=== PATIENT | male | born 1970 | race Caucasian/White ===

== ENCOUNTER 2018-01-27 08:46 | Day surgery (SDC) | payer OTHER ==
[2018-01-26 15:21] LABS: Absolute Lymphocytes (CBC) 1.8 K/uL (0.7-4.9); Absolute Monocytes 0.5 K/uL (0.1-1.3); Absolute Neutrophil 3.2 K/uL (1.8-8.0); Eosinophils % 2.7 % (0-4.4); Hematocrit 41.8 % (39.6-49.0); MCH 32.9 pg (27.0-35.0); MCV 95.7 fL (80-100); MPV 8.4 fL (7.6-11.3); Monocytes % 8.1 % (3.3-12.3); RBC Red Blood Cell Count 4.37 M/uL (4.33-5.43)
[2018-01-26 15:25] LABS: Protime INR 0.93
[2018-01-26 15:39] LABS: BUN Blood Urea Nitrogen 13 mg/dL (6-20); Bicarbonate 27 mEq/L (21-31); Glucose Level 84 mg/dL (65-120); Potassium 3.9 mEq/L (3.6-5.0); Sodium Level 137 mEq/L (135-145)
--- NOTE | 2018-01-26 16:40 | EKG ---
Test Date: 2018-01-26 Test Time: 14:07:46 Church Official: EVELYN MEASUREMENT RESULTS: Intervals: Rate: 67 UT: 120 QRSD: 102 QT: 398 QTc: 420 [place]: P: -12 UT: 120 QRS: -1 T: 18 INTERPRETIVE STATEMENTS: Normal sinus rhythm Normal ECG No previous ECG available for comparison Electronically Signed On 01-26-18 16:39:37 CDT by Zen Baron
--- OUTSIDE RECORDS SUMMARY | 2018-01-27 08:52 | XMS REPORT ---
:1970 Author Organization [employer] Care Team Providers Name Role Phone Jannet Holland Provider Role Unavailable Allergies, Adverse Reactions, Alerts Substance Reaction Event Type N.K.D.A. Info Not Available Non Drug Allergy Problems Problem Type Condition Code Onset Dates Condition Status Problem Hyperglycemia R73.9 Active Problem Hypertension, unspecified type I10 Active Problem Anxiety F41.9 Active Assessment Left arm pain M79.602 Active Assessment Hyperglycemia R73.9 Active Assessment Hypertension, unspecified type I10 Active Medications Medication Code System Code Instructions Start End Date Status Dosage Date Lisinopril ND 95247861764 20 mg Orally Active 1 tablet Once a day Ibuprofen NDC 76139521405 800 MG Orally Active 1 tablet Three times a with food week or milk as needed Ibuprofen NDC 42403956163 800 mg Orally January 11, February 10, Active 1 tablet Three times a 2017 2017 as needed day for pain; take with food or milk Results No Known Results Summary Purpose [employer] Submission
--- OUTSIDE RECORDS SUMMARY | 2018-01-27 08:52 | XMS REPORT ---
:1970 Author Organization [employer] Care Team Providers Name Role Phone Jannet Holland Provider Role Unavailable Allergies No Known Allergies Problems Problem Type Condition Code Onset Dates Condition Status Problem Anxiety F41.9 Active Problem Hyperglycemia R73.9 Active Problem Hypertension I10 Active Problem Hypertension, unspecified type I10 Active Medications No Known Medications Results No Known Results Summary Purpose [employer] Submission
--- OUTSIDE RECORDS SUMMARY | 2018-01-27 08:52 | XMS REPORT ---
:1970 Author Organization [employer] Care Team Providers Name Role Phone Jannet Holland Provider Role Unavailable Allergies No Known Allergies Problems Problem Type Condition Code Onset Dates Condition Status Problem Anxiety F41.9 Active Problem Hyperglycemia R73.9 Active Problem Hypertension I10 Active Problem Hypertension, unspecified type I10 Active Medications Medication Code System Code Instructions Start Date End Date Status Dosage Lisinopril [facility] [id number] 20 MG Orally January 11, Active 1 tablet twice a day 2017 Results No Known Results Summary Purpose [employer]ClinicalWorks Submission
[2018-01-27] MEDS ORDERED: CEFAZOLIN/SWI 1gm 1 GM/10 ML SYR ONE (09:28)
[2018-01-27] MEDS ORDERED: Ringers Lactate 1,000 ML IV ONE ×2 (09:28→11:55)
[2018-01-27] MEDS ORDERED: PROPOFOL 200 MG/20 ML VIAL IV ONE (09:50)
[2018-01-27] MEDS ORDERED: ONDANSETRON 4 MG/2 ML VIAL ONE (09:51)
[2018-01-27] MEDS ORDERED: LIDOCAINE 2% MPF 5 ML VIAL ONE (09:51)
[2018-01-27] MEDS ORDERED: MIDAZOLAM HCL 2 MG/2 ML INJ ONE (09:51)
[2018-01-27] MEDS ORDERED: FENTANYL CITR 100 MCG/2 ML ONE ×2 (09:51→11:02)
[2018-01-27] MEDS ORDERED: MORPHINE 10 MG/ML VIAL ONE (10:31)
[2018-01-27] MEDS ORDERED: BUPIVACA 0.5%/EPI 0.0005%/PF 30 ML VIAL ONE (11:02)
--- NOTE | 2018-01-27 11:50 | RAD REPORT ---
EXAM DESCRIPTION: RAD - Elbow Left 2 View - 01/27/2018 11:32 am CLINICAL HISTORY: Biceps tendon rupture. COMPARISON: None. FINDINGS: Fluoroscopic imaging is submitted of the left elbow related to biceps tendon repair. Detai ls of the procedure not available.
--- NOTE | 2018-01-27 12:03 | P.BOP ---
Preoperative diagnosis: left distal biceps tendon rupture Postoperative diagnosis: same Primary procedure: left distal biceps tendon repair Secondary procedure: none Drain Layer: NONE,NONE Estimated blood loss: <10 cc Specimen: none Findings: see dictation Anesthesia: General Complications: None Complications: see dictation Implants: Arthrex distal biceps button, 7x10 mm tenodesis screw Fluids & blood products: per anesthesia Transferred to: Recovery Room Condition: Good
[2018-01-27] MEDS ORDERED: KETOROLAC 30 MG/ML INJ ONE (12:24)
[2018-01-27] MEDS ORDERED: PROMETHAZINE 25 MG/ML VIAL ONE (12:24)
[2018-01-27] MEDS ORDERED: MEPERIDINE HCL 25 MG/0.5 ML ONE ×3 (12:24→13:01)
[2018-01-27] MEDS ORDERED: HYDROCODONE/APAP 7.5/325 MG TAB ONE (14:16)
--- NOTE | 2018-01-28 03:21 | OP ---
Date of Procedure: 01/27/2018 Surgeon: Richard Araujo MD Preoperative Diagnosis: Left distal biceps tendon rupture. Postoperative Diagnosis: Left distal biceps tendon rupture. Procedure Performed: Left distal biceps tendon repair. Anesthesia: General LMA. Fluids: Per Anesthesia record. Estimated Blood Loss: Less than 10 cc. Tourniquet Time: No tourniquet was used. Implants: An Arthrex distal biceps button and a 7 x 10 mm tenodesis screw. Indication For Procedure: Mr. Sosa is a 47-year-old male who presented to my clinic with history o f left elbow injury. Just under one month prior to presentation, he reported weakness in his left up per extremity, ecchymoses and an MRI consistent with a left complete distal biceps tendon rupture. I discussed with the patient at length risks and benefits associated with operative and nonoperative t reatment as well as risks of stiffness, given his delayed presentation. He expressed understanding a nd elected to proceed with operative treatment. Description Of Procedure: After informed consent was obtained, the patient was identified in the pre operative holding area. The left upper extremity was marked. The patient was then brought back to t operating room, transferred to the operating table in supine fashion, and placed under general LMA anesthesia. The left upper extremity was then draped in a normal sterile fashion. A time-out was i nitiated. The correct patient and procedure were confirmed and identified. The patient did receive his preoperative prophylactic antibiotics. An S-shaped incision was then made over the antecubital f donna. Bipolar electrocautery was then used to aid with hemostasis. Dissection was then taken down t o the fascia using Metzenbaum. The biceps tendon stump was then found proximal to the antecubital fo ssa. There was noted to be some shortening, given the delayed presentation. Gentle traction was osorio tiera on the biceps stump and nonviable tissue was debrided off the end of the distal biceps. There wa s a significant amount of scarring of the distal end of the stump. It was measured to fit through a 7 mm tunnel. A FiberLoop was then used to whipstitch the distal 2 cm of the biceps tendon stump and the distal centimeter was marked to aid with placement. The tendon was then wrapped in a saline soak ed gauze. Our attention was then next taken to the bicipital tuberosity in the proximal radius. Fluoroscopy wa s used to aid with locating the tuberosity. Dissection was taken down to the bicipital tuberosity on ce on proper position as verified with fluoroscopy. A 3.5 mm guide pin was then placed in a bicortic al fashion aimed 30 degrees ulnarly with the hands in full supination to protect the posterior intero sseous nerve. Once in proper position and confirmed with fluoroscopy, it was then overdrilled with a n 8 mm reamer in a unicortical fashion. The reamer and pin were then removed. Bone fragments were t hen irrigated and removed using suction. The sutures from the biceps tendon were then placed through a biceps button. It was placed through the tunnel and out the posterior cortex and the button was f lipped. The tendon was then brought in to the tunnel by pulling on the suture ends. Given the delay ed presentation, the sutured this tendon was fully seated approximately 75 degrees of elbow flexion. A free needle was then used to tie the sutures. I passed one of the suture limbs through the tendon and it was tied, which was followed by placement of the 7 x 10 mm biotenodesis screw. The screw was found to fit well within the tunnel and with good purchase. The elbow was then flexed and extended, and there was noted to be some tightness extending past 60-70 degrees of elbow flexion. The elbow w as then splinted in 90 degrees after the wound was irrigated thoroughly with normal saline. Subcutan eous tissue was approximated using a 2-0 Vicryl. Skin was approximated using a 3-0 nylon. Posterior splint was applied. After sterile dressings were placed, the patient was awakened and transferred t o PACU in stable condition. Postoperative Plan: The patient will remain in the posterior splint for 2 weeks. He will return to clinic in 2 weeks for wound check and suture removal and will begin to work on extension over the following month. TABITHA/PRESTON Voice ID: [id number] Report ID: [id number]
== END 2018-01-27 14:30 | disposition home or self-care (01) ==
LOC: OR 08:46
PROVIDERS: ATTEND Orthopaedic Surgery Sports Medicine
PROC: 0LQ40ZZ Repair Left Upper Arm Tendon, Open Approach (ICD-10-PCS; principal; 2018-01-27 10:00)
DX: S46.212A Strain of muscle, fascia and tendon of other parts of biceps, left arm, initial encounter (principal); I10 Essential (primary) hypertension; Z83.3 Family history of diabetes mellitus
CPT/HCPCS: 36415; 80048; 85025; 85610; 85730; 93005; J0690; J2175; J2250; J2405; J2550; J3010